=== PATIENT | female | born 1940 | race Caucasian/White ===

== ENCOUNTER 2020-08-02 13:30 | Emergency (ER) | payer MEDICARE, OTHER ==
[2020-08-02] MEDS ORDERED: METOPROLOL TARTRATE 50 MG TABLET PO STA (13:54)
--- NOTE | 2020-08-02 13:58 | ED Physician Documentation ---
History of Present Illness - Stated complaint Stated Complaint: HIGH BLOOD PRESSURE - Chief complaint Chief Complaint: Cardiac - History obtained from History obtained from: Patient - Additonal information Additional information: This is an 80-year-old woman with a history of hypertension who had her medications changed from irbesartan to telmisartan about a month ago because of a formulary switch. More recently she has been feeling a little "off" and slightly lightheaded. She denies chest pain or trouble breathing. She subsequently checked her blood pressure and it was in the range of 190/100. Currently taking telmisartan and hydrochlorothiazide as well as a statin. No other meds. 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 - Present Medications Home Medications: Ambulatory Orders Medication Instructions Recorded Confirmed Hydrochlorothiazide DAILY 08/02/20 Losartan Potassium [Cozaar] 100 mg PO DAILY #90 tablet 08/02/20 Metoprolol Succinate 50 mg PO DAILY #90 tab.er.24h 08/02/20 Simvastatin DAILY 08/02/20 Telmisartan DAILY 08/02/20 - Allergies Allergies/Adverse Reactions: Allergies Allergy/AdvReac Type Severity Reaction Status Date / Time doxycycline Allergy Unknown Verified 08/02/20 13:37 - Social History Does the pt smoke?: No Smoking Status: Never smoker Does the pt drink ETOH?: Yes ETOH Use: Wine Does the pt have substance abuse?: No - Immunizations Immunizations are current?: Yes - POLST Patient has POLST: No PD ED PE NORMAL - Vitals Vital signs reviewed: Yes (Hypertensive and tachycardic) - General General: Alert and oriented X 3, No acute distress - Neck Neck: Supple, no meningeal sign, No bony TTP, Thyroid normal - Cardiac Cardiac: RRR, No murmur - Respiratory Respiratory: No respiratory distress, Clear bilaterally - Abdomen Abdomen: Non tender - Extremities Extremities: Normal ROM s pain, No edema - Neuro Neuro: Alert and oriented X 3, Normal speech Results - Vitals Vitals: Vital Signs - 24 hr 08/02/20 08/02/20 08/02/20 13:37 13:50 14:29 Temperature 37.2 C 37.2 C 36.6 C Heart Rate 112 H 111 H 93 Respiratory 19 18 18 Rate Blood Pressure 186/69 H 195/88 H 158/61 H O2 Saturation 96 98 98 08/02/20 08/02/20 08/02/20 14:30 15:00 15:06 Temperature 36.7 C 36.4 C L Heart Rate 93 74 74 Respiratory 14 14 Rate Blood Pressure 158/61 H 153/77 H 153/77 H O2 Saturation 99 99 Oxygen O2 Source Room air - EKG (time done) 1336 Rate: Rate (enter#) (113) Rhythm: Sinus tachycardia [place]: Normal Intervals: Normal AL QRS: Normal Ischemia: Non specific changes. No: ST elevation c/w ischemia Computer interpretation: Agree with computer - Labs Labs: Laboratory Tests 08/02/20 08/02/20 08/02/20 14:25 14:25 14:25 WBC 5.8 RBC 3.91 L Hgb 12.5 Hct 37.5 MCV 95.9 MCH 32.0 H MCHC 33.3 RDW 13.4 Plt Count 280 MPV 10.0 Neut # (Auto) 3.6 Lymph # (Auto) 1.6 Starr # (Auto) 0.5 Eos # (Auto) 0.1 Baso # (Auto) 0.0 Absolute Nucleated RBC 0.00 Nucleated RBC % 0.0 Sodium 135 Potassium 3.8 Chloride 97 L Carbon Dioxide 26 Anion Gap 12.0 BUN 21 H Creatinine 0.8 Estimated GFR (MDRD) 69 L Glucose 120 H Calcium 9.1 Total Bilirubin 0.6 AST 29 ALT 28 Alkaline Phosphatase 51 Total Protein 6.9 Albumin 4.2 Globulin 2.7 Albumin/Globulin Ratio 1.6 Lipase 47 TSH 2.72 PD MEDICAL DECISION MAKING - ED course ED course: I queried her drug formulary website, preferred agents that would be less expensive would be losartan and metoprolol. 80yo woman with symptomatic hypertension, work-up here was unremarkable and her vital signs were much better after an oral dose of metoprolol. Departure - Departure Disposition: Home, Self Care Instructions: ED HTN Established Prescriptions: Losartan Potassium [Cozaar] 100 mg PO DAILY #90 tablet Metoprolol Succinate 50 mg PO DAILY #90 tab.er.24h Comments: Thyroid function testing is still pending, I will call you if it needs to be addressed. Otherwise your blood pressure seemed to have come down nicely with the metoprolol here. Looking at your formulary, preferred meds for your plan are losartan and metoprolol. Continue the hydrochlorothiazide. Do not take your other blood pressure medicine since it does not seem to be working well. Followup with your doctor in 1 week for BP check. Discharge Date/Time: 08/02/20 15:08
[2020-08-02 14:31] LABS: BASOPHILS % (AUTO) 0.5 %; EOSINOPHILS # (AUTO) 0.1 10^3/uL (0.0-0.7); EOSINOPHILS % (AUTO) 1.6 %; HGB - HEMOGLOBIN 12.5 g/dL (12.0-16.0); LYMPHOCYTES # (AUTO) 1.6 10^3/uL (1.5-3.5); LYMPHOCYTES % (AUTO) 26.9 %; MEAN CORPUSCULAR HGB CONC 33.3 g/dL (32.0-36.0); MEAN CORPUSCULAR VOLUME 95.9 fL (81.0-99.0); MONOCYTES # (AUTO) 0.5 10^3/uL (0.0-1.0); MONOCYTES % (AUTO) 8.5 %; NEUTROPHILS # (AUTO) 3.6 10^3/uL (1.5-6.6); NEUTROPHILS % (AUTO) 62.2 %; PLT - PLATELET COUNT 280 10^3/uL (130-450); RED BLOOD COUNT 3.91 10^6/uL (4.20-5.40); RED CELL DISTRIBUTION WIDTH 13.4 % (12.0-15.0); WHITE BLOOD COUNT 5.8 x10^3/uL (4.8-10.8)
[2020-08-02 14:45] LABS: ALBUMIN 4.2 g/dL (3.2-5.5); ALBUMIN/GLOBULIN RATIO 1.6 (1.0-2.2); BILIRUBIN,TOTAL 0.6 mg/dL (0.2-1.0); CALCIUM 9.1 mg/dL (8.5-10.3); CREATININE 0.8 mg/dL (0.4-1.0); TOTAL PROTEIN 6.9 g/dL (6.7-8.2)
[2020-08-02 15:06] VITALS: BP 153/77
== END 2020-08-02 15:08 | disposition home or self-care (01) ==
LOC: ED 13:30
DX: I10 Essential (primary) hypertension (principal); R42 Dizziness and giddiness
CPT/HCPCS: 36415; 80053; 83690; 84443; 85025; 93005; 99283; 99284; A9270